=== PATIENT | female | born 1950 | race Caucasian/White ===

== ENCOUNTER 2018-04-26 14:06 | Outpatient (CLI) | payer MEDICARE | END 2018-04-26 14:07 | disposition home or self-care (01) | LOC: BICMAMMO 14:06 | PROVIDERS: ATTEND Family Medicine | DX: Z12.31 Encounter for screening mammogram for malignant neoplasm of breast (principal); Z80.3 Family history of malignant neoplasm of breast | CPT/HCPCS: 77063; 77067 ==

== ENCOUNTER 2018-07-10 11:07 | Outpatient (CLI) | payer MEDICARE ==
[2018-07-10 12:28] LABS: #Basophils 0.1 thou/uL (0.0-0.2); #Eosinphils 0.3 thou/uL (0.0-0.7); #Lymphocytes 1.9 thou/uL (1.20-3.40); #Monocytes 0.6 thou/uL (0.11-0.59); #Neutrophils 3.3 thou/uL (1.40-6.50); %Basophils 0.9 % (0.0-1.0); %Eosinophils 4.6 % (0.0-10.0); %Lymphocytes 31.4 % (21.0-51.0); %Monocytes 9.6 % (0.0-10.0); %Neutrophils 53.6 % (42.0-75.0); Hemoglobin 13.2 g/dL (12.0-16.0); Mean Corpuscular HGB CONC 32.8 g/dL (32.0-36.0); Mean Corpuscular Hemoglobin 29.6 pg (27.0-31.0); Mean Corpuscular Volume 90.4 fL (78.0-98.0); Mean Platelet Volume 7.1 fL (7.4-10.4); Platelet Count 360 thou/uL (130-400); RBC Distribution Width 11.6 % (11.5-14.5); Red Blood Cell (RBC) Count 4.45 mill/uL (4.20-5.40); White Blood Cell (WBC) Count 6.1 thou/uL (4.8-10.8)
[2018-07-10 12:39] LABS: Bilirubin Negative (Negative); Blood, Urine Negative (Negative); Clarity CLEAR (Clear); Glucose, Urine (Dipstick) Negative (Negative); Leukocyte Negative (Negative); Nitrite Negative (Negative); Protein, Urine (Dipstick) Negative (Neg-Trace); Specific Gravity, Urine 1.005 (1.002-1.036); Urobilinogen 0.2 mg/dL (0.2-1.0); pH, Urine 6.5 (5.0-9.0)
[2018-07-10 12:41] LABS: Bacteria/HPF None Seen HPF (None Seen); Hyaline Casts/LPF 0-3 HYALINE CAST LPF (0-3 Hyaline); Pathc Cast-AUWi Flag 0.29 (0-2.49); RBC/HPF None Seen HPF (0-3); Squamous Epithelial 0-3 HPF (0-3); WBC/HPF None Seen HPF (0-3)
[2018-07-10 12:42] LABS: INR-International Normal Ratio 0.9; Prothrombin Time 12.6 SEC (12.0-14.7)
[2018-07-10 12:48] LABS: Anion Gap 12 mmol/L (10-20); BUN (Urea Nitrogen) 16 mg/dL (9.8-20.1); Calc. Creatinine Clearance 0 mL/min (70-130); Calcium 9.9 mg/dL (7.8-10.44); Carbon Dioxide 24 mmol/L (23-31); Chloride 104 mmol/L (98-107); Estimated GFR-MDRD 64; Glucose 103 mg/dL (80-115); Potassium 4.3 mmol/L (3.5-5.1); Sodium 136 mmol/L (136-145)
--- NOTE | 2018-07-11 07:48 | EKG ---
Test Reason : Blood Pressure : / mmHG Vent. Rate : 070 BPM Atrial Rate : 070 BPM P-R Int : 174 ms QRS Dur : 084 ms QT Int : 380 ms P-R-T Axes : 065 053 039 degrees QTc Int : 410 ms Normal sinus rhythm Low voltage QRS Borderline ECG When compared with ECG of 16-MAY-2016 12:03, No significant change was found Confirmed by ASHLIE GUILLERMO ([id number]) on 07/11/2018 7:47:50 AM Referred By: IVON Confirmed By:ASHLIE GUILLERMO
== END 2018-07-10 11:08 | disposition home or self-care (01) ==
LOC: LABBT 11:07
PROVIDERS: ATTEND Orthopaedic Surgery
DX: Z01.818 Encounter for other preprocedural examination (principal); M17.11 Unilateral primary osteoarthritis, right knee
CPT/HCPCS: 80048; 81001; 85025; 85610; 86850; 86900; 86901; 87081; 93005; 93010

== ENCOUNTER 2018-07-15 05:29 | Inpatient (IN) | payer MEDICARE ==
[2018-07-04 09:31] VITALS: BMI 36.7
[2018-07-15] MEDS ORDERED: Fentanyl 100 MCG/2 ML VIAL ONE ×3 (05:41→09:10)
[2018-07-15] MEDS ORDERED: Propofol 1,000 MG/100 ML VIAL IV ONE (05:43)
[2018-07-15] MEDS ORDERED: Tranexamic Acid 1,000 MG/10 ML VIAL ONE ×2 (05:57→09:10)
[2018-07-15] MEDS ORDERED: Sodium Chloride 0.9% 100 ML ONE (05:57)
[2018-07-15] MEDS ORDERED: Vancomycin HCl 1.5 GM in Sodium Chloride 0.9% 250 ML 300 ML IVPB SCH ×2 (06:15→18:00)
[2018-07-15] MEDS ORDERED: Midazolam HCl 2 mg/2 ml Vial ONE (06:25)
[2018-07-15] MEDS ORDERED: Bupivacaine PF 0.5% 30 ML VIAL ONE (06:37)
[2018-07-15] MEDS ORDERED: diphenhydrAMINE 25 MG CAP PO PRN (07:30)
[2018-07-15] MEDS ORDERED: Fentanyl 100 MCG/2 ML VIAL SLOW IVP PRN (07:30)
[2018-07-15] MEDS ORDERED: Tranexamic Acid 1,000 MG in Sodium Chloride 0.9% 100 ML IVPB SCH (07:30)
[2018-07-15] MEDS ORDERED: Promethazine HCl 25 MG/ML VIAL IM PRN ×3 (07:30→09:19)
[2018-07-15] MEDS ORDERED: Acetaminophen 325 MG TAB PO PRN (07:30)
[2018-07-15] MEDS ORDERED: HYDROcodone/Acetaminophen 10/325 mg Tablet PO PRN ×3 (07:30→07:35)
[2018-07-15] MEDS ORDERED: traMADol HCl 50 MG TAB PO PRN ×3 (07:30→07:35)
[2018-07-15] MEDS ORDERED: Ondansetron PF 4 MG/2 ML Vial IVP PRN ×2 (07:30→07:35)
[2018-07-15] MEDS ORDERED: Fentanyl 100 MCG/2 ML VIAL IV PRN (07:35)
[2018-07-15] MEDS ORDERED: Zolpidem Tartrate 5 MG TAB PO PRN (07:35)
[2018-07-15] MEDS ORDERED: Ropivacaine HCl/PF 250 ML in Premix Bag 1 BAG NERVE BLCK SCH (07:35)
[2018-07-15] MEDS ORDERED: Propofol 500 MG/50 ML VIAL ONE (08:24)
[2018-07-15] MEDS ORDERED: PHENYLEPHRINE-NS 100 MCG/ML 10 ML SYRINGE ONE ×2 (08:44→11:38)
[2018-07-15] MEDS ORDERED: Promethazine HCl 25 MG/ML VIAL SLOW IVP PRN (09:19)
[2018-07-15] MEDS ORDERED: Ondansetron HCl/PF 4 MG/2 ML Vial IVP PRN (09:19)
--- NOTE | 2018-07-15 09:38 | OP ---
DATE OF PROCEDURE: 07/15/2018 PREOPERATIVE DIAGNOSIS: Right knee osteoarthrosis. POSTOPERATIVE DIAGNOSIS: Right knee osteoarthrosis. PROCEDURE PERFORMED: Right total knee arthroplasty using [place] pinless navigation. BABY DOCTOR: Terrence Panchal PA-C BLOOD LOSS: Minimal. COMPLICATIONS: None. ANESTHESIA: The patient did have a general anesthetic as well as a block preoperatively. IMPLANTS: Our implants to the right knee included a Swati Triathlon total knee system, the femur size 4 cruciate retaining femur. We used a size 4 primary tibial baseplate. We used a 4 x 9 mm CS X3 tibial bearing and an asymmetric 29 x 9 X3 patella. DISPOSITION: She did go to recovery room in stable condition. INDICATIONS: A 67-year-old female, who has had knee pain for years and at this time, finally got in to the point, where she wished to have her knee replaced. TOURNIQUET TIME: PROCEDURE IN DETAIL: After all appropriate consent forms were explained and signed, the patient was taken back to the operating room and at this time was given general anesthetic. Once the level of anesthesia was appropriate, a well-padded tourniquet was placed on the right leg, and the leg was then prepped and draped in standard surgical fashion. The limb was exsanguinated and tourniquet taken up to 300 mmHg. Midline incision was made with a 10 blade down through the skin and subcutaneous tissue. Bovie electrocautery was used to coagulate any brisk venous bleeding. A new blade was used to make a medial parapatellar arthrotomy. Small subperiosteal release was performed medially and excess fat pad was removed. The knee was flexed up to gain access to the femur. The femur was navigated and distal femoral resection was made. Epicondylar access was used to align our sizing jig and this was pinned in place. We sized our femur to be a 4 cruciate retaining. 4:1 cutting block was applied and pinned. Anterior and posterior chamfer cuts were then made. We navigated out our proximal tibia and made our proximal tibial resection. Spreaders were used to remove any posterior osteophytes off the back of the femur as well as remaining meniscal tissue. A long alignment caroline was then used to achieve correct rotation of our tibial baseplate and a size 4 primary tibial baseplate was chosen. This was pinned in place. We trialed the polyethylene and a 4 x 9 mm CS X3 polyethylene gave us full extension and good stability throughout range of motion. Two towel clips and a saw were used to cut our patella. Three lug nuts were drilled and asymmetric 29 x 9 X3 patella was trialed which sat nicely in the trochlear groove. We then drilled our femur and punched our tibia. All components were removed. The knee was thoroughly irrigated and dried. Cement was mixed into the cement gun on the back table. Components were then placed. The knee was held out in full extension until the cement had dried. All excess bone cement was removed. Multiple #2 Vicryl stitches as well as a Quill were used to close our extensor mechanism. 0 Quill followed by a running Monoderm was then used to close the skin. Surgicel glue was then used on the skin. Once this had dried, soft tissue dressing was applied to the limb, tourniquet was let down, and the toes pinked up nicely. The patient was then awakened and taken to the recovery room in stable condition. All counts were correct at the end of the case. The patient did receive preoperative IV antibiotics. The patient was injected with Exparel for postoperative pain relief. Job ID: [id number]
[2018-07-15] MEDS ORDERED: Ropivacaine 0.5% HCl/PF (150 MG/30 ML VIAL) ONE (11:23)
[2018-07-15] MEDS ORDERED: Ropivacaine 0.2% HCl/PF (40 MG/20 ML VIAL) ONE (11:23)
[2018-07-15] MEDS ORDERED: PROPOFOL 200 MG/20 ML VIAL ONE (11:38)
[2018-07-15] MEDS ORDERED: Dexamethasone 20 MG/5 ML VIAL ONE (11:38)
[2018-07-15] MEDS ORDERED: Ondansetron PF 4 MG/2 ML Vial ONE (11:38)
[2018-07-15] MEDS: Ketorolac Tromethamine 30 MG/ML VIAL IVP SCH ×3 (13:22→23:06)
[2018-07-15] MEDS: CEFAZOLIN 2 GM in Premix Bag 1 BAG IVPB SCH ×2 (13:22→23:07)
[2018-07-15] MEDS: Amlodipine 10 MG TAB PO SCH (13:24)
[2018-07-15] MEDS: Pantoprazole 40 MG GRANULES PACKET PO SCH (13:25)
[2018-07-15] MEDS: Aspirin 81 mg Enteric Coated Tablet PO SCH ×2 (13:33→20:27)
[2018-07-15] MEDS: Sodium Chloride 0.9% 1,000 ML IV SCH ×2 (13:34→19:32)
[2018-07-15] MEDS ORDERED: Ketorolac Tromethamine 30 MG/ML VIAL IVP SCH (14:00)
[2018-07-15] MEDS ORDERED: Eucerin (Mineral Oil/Petrolatum,White) 30 gm Jar TOP PRN (15:02)
[2018-07-15] MEDS ORDERED: Cepastat Lozenges 1 LOZ PO PRN (15:02)
[2018-07-15] MEDS ORDERED: Sodium Chloride 0.65% Nasal 44 ML BOT EA NARE PRN (15:02)
[2018-07-15] MEDS ORDERED: Loperamide HCl 2 MG CAP PO PRN (15:02)
[2018-07-15] MEDS ORDERED: Artificial Tear Sol 15 ML BOT EA EYE PRN (15:02)
[2018-07-15] MEDS ORDERED: hydrALAZINE 20 MG/ML VIAL SLOW IVP PRN (15:02)
[2018-07-15] MEDS ORDERED: Diabetic Tussin 200 MG/10 ML UDCUP PO PRN (15:02)
--- NOTE | 2018-07-15 15:12 | PDOC.PN ---
- Subjective Encounter Start Date: 07/15/18 Encounter Start Time: 14:15 -: old records requested/rev Patient seen and examined. No new complaints. pt is admitted for right TKR consulted for medical management post op she is doing well pain controlled - Objective Resuscitation Status - Order Detail: 07/15/18 15:02 Resuscitation Status Routine Resuscitation Status: FULL: Full Resuscitation MAR Reviewed: Yes Vital Signs & Weight: Weight Weight 214 lb Additional Labs: old [employer] record reviewed and labs are normal Phys Exam - Physical Examination Constitutional: NAD HEENT: PERRLA, moist MMs, sclera anicteric Neck: no JVD, supple Respiratory: no wheezing, no rales, no rhonchi Cardiovascular: RRR, no significant murmur, no rub Gastrointestinal: soft, non-tender, no distention, positive bowel sounds Musculoskeletal: no edema, pulses present right knee with dressing, nerve block in place, Neurological: non-focal, normal sensation, moves all 4 limbs Lymphatic: no nodes Psychiatric: normal affect, A&O x 3 Skin: no rash, normal turgor Dx/Plan (1) Status post total right knee replacement Code(s): Z96.651 - PRESENCE OF RIGHT ARTIFICIAL KNEE JOINT Status: Acute (2) Dyslipidemia Code(s): E78.5 - HYPERLIPIDEMIA, UNSPECIFIED Status: Chronic (3) GERD (gastroesophageal reflux disease) Code(s): K21.9 - GASTRO-ESOPHAGEAL REFLUX DISEASE WITHOUT ESOPHAGITIS Status: Chronic (4) Hypertension Code(s): I10 - ESSENTIAL (PRIMARY) HYPERTENSION Status: Chronic (5) Hypothyroidism Code(s): E03.9 - HYPOTHYROIDISM, UNSPECIFIED Status: Chronic (6) Obesity (BMI 30-39.9) Code(s): E66.9 - OBESITY, UNSPECIFIED Status: Chronic - Plan cont current plan of care, PT/OT * home medication reconciled * medication reviewed as below * symptomatic treatment * pain controlled * post operative care as per surgeon * code status full code * will follow * medically stable for now. * continue aspirin for DVT prophylaxis * nerve block as per ansthesia Review of Systems - Review of Systems ENT: negative: Ear Pain, Ear Discharge, Nose Pain, Nose Discharge, Nose Congestion, Mouth Pain, Mouth Swelling, Throat Pain, Throat Swelling, Other Respiratory: negative: Cough, Dry, Shortness of Breath, Hemoptysis, SOB with Excertion, Pleuritic Pain, Sputum, Wheezing Cardiovascular: negative: chest pain, palpitations, orthopnea, paroxysmal nocturnal dyspnea, edema, light headedness, other Gastrointestinal: negative: Nausea, Vomiting, Abdominal Pain, Diarrhea, Constipation, Melena, Hematochezia, Other Genitourinary: negative: Dysuria, Frequency, Incontinence, Hematuria, Retention , Other Musculoskeletal: negative: Neck Pain, Shoulder Pain, Arm Pain, Back Pain, Hand Pain, Leg Pain, Foot Pain, Other Skin: negative: Rash, Lesions, Tim, Bruising, Other - Medications/Allergies Allergies/Adverse Reactions: Allergies Allergy/AdvReac Type Severity Reaction Status Date / Time latex Allergy Rash Verified 07/04/18 09:32 Medications: Current Medications Acetaminophen (Tylenol) 650 mg PO Q4H PRN PRN Reason: Headache/Fever or Pain Hydrocodone Bitart/Acetaminophen ([place] 10/325) 1 tab PO Q4H PRN PRN Reason: Pain (1-3) Hydrocodone Bitart/Acetaminophen ([place] 10/325) 2 tab PO Q4H PRN PRN Reason: PAIN (4-6) Amlodipine Besylate (Norvasc) 10 mg PO DAILY [facility] Last Admin: 07/15/18 13:24 Dose: Not Given Artificial Tears (Tears Naturale) 2 drop EA EYE PRN PRN PRN Reason: Dry Eyes Aspirin (Ecotrin) 81 mg PO BID [facility] Last Admin: 07/15/18 13:33 Dose: 81 mg Atorvastatin Calcium (Lipitor) 40 mg PO [facility] Diphenhydramine HCl (Benadryl) 25 mg PO Q6H PRN PRN Reason: Itching Fentanyl (Sublimaze) 50 mcg IV Q1H PRN PRN Reason: BREAKTHROUGH PAIN Ferrous Gluconate (Fergon) 324 mg PO BID-[facility] Guaifenesin (Robitussin Sf) 200 mg PO Q4H PRN PRN Reason: Cough Hydralazine HCl (Apresoline) 10 mg SLOW IVP Q4H PRN PRN Reason: SBP > 180 and HR < 70 Cefazolin Sodium/Dextrose 2 gm (/ Device) 50 mls @ 100 mls/hr IVPB Q8HR [facility] Stop: 07/15/18 22:29 Last Admin: 07/15/18 13:22 Dose: 50 mls Sodium Chloride (Normal Saline 0.9%) 1,000 mls @ 100 mls/hr IV .Q10H [facility] Last Admin: 07/15/18 13:34 Dose: Not Given Vancomycin HCl 1.5 gm/ Sodium (Chloride) 300 mls @ 200 mls/hr IVPB 1800 [facility] Stop: 07/15/18 19:29 Ropivacaine 250 ml/ Device 250 mls @ 0 mls/hr NERVE BLCK INF [facility] Iron/Minerals/Multivitamins (Theragran M) 1 tab PO DAILY [facility] Ketorolac Tromethamine (Toradol) 15 mg IVP Q6HR [facility] Stop: 07/17/18 06:01 Last Admin: 07/15/18 13:22 Dose: 15 mg Levothyroxine Sodium (Synthroid) 50 mcg PO 0600 [facility] Liothyronine Sodium (Cytomel) 5 mcg PO 0600 [facility] Loperamide HCl (Imodium) 2 mg PO PRN PRN PRN Reason: Diarrhea/Loose Stools Losartan Potassium (Cozaar) 100 mg PO HS [facility] Metoprolol Succinate (Toprol Xl) 50 mg PO BID [facility] Last Admin: 07/15/18 13:24 Dose: Not Given Mineral Oil/White Petrolatum (Eucerin Cream) 0 gm TOP BIDPRN PRN PRN Reason: Dry Skin Ondansetron HCl (Zofran) 4 mg IVP Q6H PRN PRN Reason: Nausea/Vomiting Pantoprazole Sodium (Protonix) 40 mg PO DAILY [facility] Last Admin: 07/15/18 13:25 Dose: Not Given Melatonin 1 Mg 0 each PO HS [facility] Promethazine HCl (Phenergan) 12.5 mg IM Q4H PRN PRN Reason: Nausea/Vomiting Senna/Docusate Sodium (Senokot S) 2 tab PO BID [facility] Sodium Chloride (Flush - Normal Saline) 10 ml IVF PRN PRN PRN Reason: Saline Flush Sodium Chloride ([place] Nasal [place] 0.65%) 0 ml EA NARE QIDPRN PRN PRN Reason: Nasal Congestion Throat Lozenges (Cepastat Lozenges) 1 nick PO Q2H PRN PRN Reason: Sore Throat Tramadol HCl (Ultram) 50 mg PO Q6H PRN PRN Reason: Mild Pain (1-3) Last Admin: 07/15/18 13:33 Dose: 50 mg Tramadol HCl (Ultram) 100 mg PO Q6H PRN PRN Reason: Moderate Pain 4-6 Zolpidem Tartrate (Ambien) 5 mg PO HSPRN PRN PRN Reason: Insomnia
[2018-07-15] MEDS: Atorvastatin Calcium 40 MG TAB PO SCH (20:27)
[2018-07-15] MEDS: Losartan 25 MG TAB PO SCH (20:28)
[2018-07-15] MEDS ORDERED: Melatonin 3 MG TAB PO SCH (21:00)
[2018-07-15] MEDS ORDERED: Prevnar 13-Val Conj/PF 0.5 ML SYRINGE IM ONE (21:00)
[2018-07-15] MEDS: Zolpidem Tartrate 5 MG TAB PO PRN (23:05)
[2018-07-16] MEDS: Ketorolac Tromethamine 30 MG/ML VIAL IVP SCH ×3 (05:32→18:36)
[2018-07-16] MEDS: HYDROcodone/Acetaminophen 10/325 mg Tablet PO PRN ×3 (05:34→16:33)
[2018-07-16] MEDS: Levothyroxine Sodium 50 MCG TAB PO SCH (05:34)
[2018-07-16] MEDS: Liothyronine Sodium 5 MCG TAB PO SCH (05:34)
[2018-07-16] MEDS: Sodium Chloride 0.9% 1,000 ML IV SCH ×2 (05:35→19:31)
[2018-07-16 06:03] LABS: Hemoglobin 11.4 g/dL (12.0-16.0); Mean Corpuscular HGB CONC 33.7 g/dL (32.0-36.0); Mean Corpuscular Hemoglobin 30.9 pg (27.0-31.0); Mean Corpuscular Volume 91.8 fL (78.0-98.0); Mean Platelet Volume 7.2 fL (7.4-10.4); Platelet Count 322 thou/uL (130-400); RBC Distribution Width 11.5 % (11.5-14.5); Red Blood Cell (RBC) Count 3.68 mill/uL (4.20-5.40); White Blood Cell (WBC) Count 12.4 thou/uL (4.8-10.8)
[2018-07-16] MEDS: Amlodipine 10 MG TAB PO SCH (08:14)
[2018-07-16] MEDS: Senokot S 8.6-50 MG TAB PO SCH ×2 (08:15→20:58)
[2018-07-16] MEDS: Aspirin 81 mg Enteric Coated Tablet PO SCH ×2 (08:15→20:58)
[2018-07-16] MEDS: Pantoprazole 40 MG GRANULES PACKET PO SCH (08:15)
[2018-07-16] MEDS: Multivitamin W/ Minerals 1 TAB PO SCH (08:17)
[2018-07-16] MEDS: Ferrous Gluconate 324 MG TAB PO SCH ×2 (08:18→19:31)
--- NOTE | 2018-07-16 11:54 | PDOC.PN ---
- Subjective Encounter Start Date: 07/16/18 Encounter Start Time: 08:00 Patient seen and examined. No new complaints. No overnight events - Objective Resuscitation Status - Order Detail: 07/15/18 15:02 Resuscitation Status Routine Resuscitation Status: FULL: Full Resuscitation MAR Reviewed: Yes Vital Signs & Weight: Vital Signs (12 hours) Temp Pulse Resp BP Pulse Ox 07/16/18 08:26 98.3 F 76 14 109/68 95 07/16/18 05:00 98.3 F 75 18 121/72 95 Weight Admit Weight 214 lb Weight 214 lb I&O: 07/15/18 07/16/18 07/17/18 06:59 06:59 06:59 Intake Total 3300 Output Total 3200 Balance 100 Result Diagrams: 07/16/18 04:56 Phys Exam - Physical Examination Constitutional: NAD HEENT: PERRLA, moist MMs, sclera anicteric, oral pharynx no lesions Neck: no JVD, supple Respiratory: no wheezing, no rales, no rhonchi Cardiovascular: RRR, no significant murmur, no rub Gastrointestinal: soft, non-tender, no distention, positive bowel sounds Musculoskeletal: no edema, pulses present right knee with dressing, nerve block in place Neurological: non-focal, normal sensation, moves all 4 limbs Lymphatic: no nodes Psychiatric: normal affect, A&O x 3 Skin: no rash, normal turgor Dx/Plan (1) Status post total right knee replacement Code(s): Z96.651 - PRESENCE OF RIGHT ARTIFICIAL KNEE JOINT Status: Acute (2) Dyslipidemia Code(s): E78.5 - HYPERLIPIDEMIA, UNSPECIFIED Status: Chronic (3) GERD (gastroesophageal reflux disease) Code(s): K21.9 - GASTRO-ESOPHAGEAL REFLUX DISEASE WITHOUT ESOPHAGITIS Status: Chronic (4) Hypertension Code(s): I10 - ESSENTIAL (PRIMARY) HYPERTENSION Status: Chronic (5) Hypothyroidism Code(s): E03.9 - HYPOTHYROIDISM, UNSPECIFIED Status: Chronic (6) Obesity (BMI 30-39.9) Code(s): E66.9 - OBESITY, UNSPECIFIED Status: Chronic (7) Anemia, normocytic normochromic Code(s): D64.9 - ANEMIA, UNSPECIFIED Status: Acute - Plan cont current plan of care, plan discussed w/ family, PT/OT * medication reviewed as below * symptomatic treatment * pain controlled * nerve block as per anesthesia * PT/OT as per [facility] protocol * continue aspirin for DVT prophylaxis * post operative care as per surgeon * discharge per primary team * medically stable for now.. Review of Systems - Review of Systems ENT: negative: Ear Pain, Ear Discharge, Nose Pain, Nose Discharge, Nose Congestion, Mouth Pain, Mouth Swelling, Throat Pain, Throat Swelling, Other Respiratory: negative: Cough, Dry, Shortness of Breath, Hemoptysis, SOB with Excertion, Pleuritic Pain, Sputum, Wheezing Cardiovascular: negative: chest pain, palpitations, orthopnea, paroxysmal nocturnal dyspnea, edema, light headedness, other Gastrointestinal: negative: Nausea, Vomiting, Abdominal Pain, Diarrhea, Constipation, Melena, Hematochezia, Other Genitourinary: negative: Dysuria, Frequency, Incontinence, Hematuria, Retention , Other Musculoskeletal: negative: Neck Pain, Shoulder Pain, Arm Pain, Back Pain, Hand Pain, Leg Pain, Foot Pain, Other - Medications/Allergies Allergies/Adverse Reactions: Allergies Allergy/AdvReac Type Severity Reaction Status Date / Time latex Allergy Rash Verified 07/04/18 09:32 Medications: Current Medications Acetaminophen (Tylenol) 650 mg PO Q4H PRN PRN Reason: Headache/Fever or Pain Hydrocodone Bitart/Acetaminophen ([place] 10/325) 1 tab PO Q4H PRN PRN Reason: Pain (1-3) Hydrocodone Bitart/Acetaminophen ([place] 10/325) 2 tab PO Q4H PRN PRN Reason: PAIN (4-6) Last Admin: 07/16/18 10:01 Dose: 2 tab Amlodipine Besylate (Norvasc) 10 mg PO DAILY [facility] Last Admin: 07/16/18 08:14 Dose: 10 mg Artificial Tears (Tears Renewed 15ml Bottle) 2 drop EA EYE PRN PRN PRN Reason: Dry Eyes Aspirin (Ecotrin) 81 mg PO BID [facility] Last Admin: 07/16/18 08:15 Dose: 81 mg Atorvastatin Calcium (Lipitor) 40 mg PO HS [facility] Last Admin: 07/15/18 20:27 Dose: 40 mg Diphenhydramine HCl (Benadryl) 25 mg PO Q6H PRN PRN Reason: Itching Fentanyl (Sublimaze) 50 mcg IV Q1H PRN PRN Reason: BREAKTHROUGH PAIN Ferrous Gluconate (Fergon) 324 mg PO BID-[facility] Last Admin: 07/16/18 08:18 Dose: Not Given Guaifenesin (Robitussin Sf) 200 mg PO Q4H PRN PRN Reason: Cough Hydralazine HCl (Apresoline) 10 mg SLOW IVP Q4H PRN PRN Reason: SBP > 180 and HR < 70 Sodium Chloride (Normal Saline 0.9%) 1,000 mls @ 100 mls/hr IV .Q10H [facility] Last Admin: 07/16/18 05:35 Dose: Not Given Ropivacaine 250 ml/ Device 250 mls @ 0 mls/hr NERVE BLCK INF [facility] Last Admin: 07/16/18 10:00 Dose: 250 mls Iron/Minerals/Multivitamins (Theragran M) 1 tab PO DAILY [facility] Last Admin: 07/16/18 08:17 Dose: Not Given Ketorolac Tromethamine (Toradol) 15 mg IVP Q6HR [facility] Stop: 07/17/18 06:01 Last Admin: 07/16/18 05:32 Dose: 15 mg Levothyroxine Sodium (Synthroid) 50 mcg PO 0600 [facility] Last Admin: 07/16/18 05:34 Dose: 50 mcg Liothyronine Sodium (Cytomel) 5 mcg PO 0600 [facility] Last Admin: 07/16/18 05:34 Dose: 5 mcg Loperamide HCl (Imodium) 2 mg PO PRN PRN PRN Reason: Diarrhea/Loose Stools Losartan Potassium (Cozaar) 100 mg PO HS [facility] Last Admin: 07/15/18 20:28 Dose: Not Given Metoprolol Succinate (Toprol Xl) 50 mg PO BID [facility] Last Admin: 07/16/18 08:14 Dose: 50 mg Mineral Oil/White Petrolatum (Eucerin Cream) 0 gm TOP BIDPRN PRN PRN Reason: Dry Skin Ondansetron HCl (Zofran) 4 mg IVP Q6H PRN PRN Reason: Nausea/Vomiting Pantoprazole Sodium (Protonix) 40 mg PO DAILY [facility] Last Admin: 07/16/18 08:15 Dose: 40 mg Promethazine HCl (Phenergan) 12.5 mg IM Q4H PRN PRN Reason: Nausea/Vomiting Senna/Docusate Sodium (Senokot S) 2 tab PO BID [facility] Last Admin: 07/16/18 08:15 Dose: 2 tab Sodium Chloride (Flush - Normal Saline) 10 ml IVF PRN PRN PRN Reason: Saline Flush Sodium Chloride ([place] Nasal [place] 0.65%) 0 ml EA NARE QIDPRN PRN PRN Reason: Nasal Congestion Throat Lozenges (Cepastat Lozenges) 1 nick PO Q2H PRN PRN Reason: Sore Throat Tramadol HCl (Ultram) 50 mg PO Q6H PRN PRN Reason: Mild Pain (1-3) Last Admin: 07/15/18 13:33 Dose: 50 mg Tramadol HCl (Ultram) 100 mg PO Q6H PRN PRN Reason: Moderate Pain 4-6 Zolpidem Tartrate (Ambien) 5 mg PO HSPRN PRN PRN Reason: Insomnia Last Admin: 07/15/18 23:05 Dose: 5 mg
[2018-07-16] MEDS: Atorvastatin Calcium 40 MG TAB PO SCH (20:58)
[2018-07-16] MEDS: Losartan 25 MG TAB PO SCH (20:58)
[2018-07-16] MEDS ORDERED: Prevnar 13-Val Conj/PF 0.5 ML SYRINGE IM ONE (21:00)
[2018-07-17] MEDS: Zolpidem Tartrate 5 MG TAB PO PRN (00:01)
[2018-07-17] MEDS: Sodium Chloride 0.9% 1,000 ML IV SCH ×2 (00:01→10:41)
[2018-07-17 05:00] LABS: Hemoglobin 10.3 g/dL (12.0-16.0); Mean Corpuscular HGB CONC 32.9 g/dL (32.0-36.0); Mean Corpuscular Hemoglobin 30.7 pg (27.0-31.0); Mean Corpuscular Volume 93.2 fL (78.0-98.0); Mean Platelet Volume 7.2 fL (7.4-10.4); Platelet Count 298 thou/uL (130-400); RBC Distribution Width 11.9 % (11.5-14.5); Red Blood Cell (RBC) Count 3.36 mill/uL (4.20-5.40); White Blood Cell (WBC) Count 9.2 thou/uL (4.8-10.8)
[2018-07-17] MEDS: Ketorolac Tromethamine 30 MG/ML VIAL IVP SCH ×2 (05:33)
[2018-07-17] MEDS: Liothyronine Sodium 5 MCG TAB PO SCH (05:34)
[2018-07-17] MEDS: Levothyroxine Sodium 50 MCG TAB PO SCH (05:34)
[2018-07-17] MEDS: HYDROcodone/Acetaminophen 10/325 mg Tablet PO PRN ×2 (08:25→12:56)
[2018-07-17] MEDS: Senokot S 8.6-50 MG TAB PO SCH (08:29)
[2018-07-17] MEDS: Amlodipine 10 MG TAB PO SCH (08:29)
[2018-07-17] MEDS: Aspirin 81 mg Enteric Coated Tablet PO SCH (08:29)
[2018-07-17] MEDS: Multivitamin W/ Minerals 1 TAB PO SCH (08:30)
[2018-07-17] MEDS: Ferrous Gluconate 324 MG TAB PO SCH (08:30)
[2018-07-17] MEDS: Pantoprazole 40 MG GRANULES PACKET PO SCH (09:18)
[2018-07-17 12:17] VITALS: BP 125/74; TEMP 98.4
--- NOTE | 2018-07-18 12:36 | DIS ---
DATE OF ADMISSION: 07/15/2018 DATE OF DISCHARGE: 07/17/2018 ADMISSION DIAGNOSIS: End-stage tricompartmental osteoarthritis, right knee. DISCHARGE DIAGNOSIS: End-stage tricompartmental osteoarthritis, right knee. OPERATIVE PROCEDURE: Right total knee arthroplasty. CONSULTANTS: [facility] for acute postop pain management and [facility] management. DISCHARGE DISPOSITION: To home. BRIEF CLINICAL HISTORY: The patient was admitted to [facility] and underwent the above elective procedure on the date of admission without intra-, concha-, or postoperative complication. The hospital course was unremarkable. At the time of discharge, the patient is afebrile, ambulatory without assistance utilizing a rolling walker in a full weightbearing fashion, tolerating a regular diet, and voiding without difficulty. The patient's incision is clean and closed without any erythema. DISCHARGE MEDICATIONS: Please see medication reconciliation form. We will be happy to see the patient on an as-needed basis between now and the patient's next scheduled appointment. CONDITION ON DISCHARGE: Stable. PROGNOSIS: Good. Job ID: [id number]
== END 2018-07-17 13:10 | disposition home or self-care (01) | DRG 470 ==
LOC: SDC 05:29 → SJJU 07:30
PROVIDERS: ADMIT Orthopaedic Surgery; ATTEND Orthopaedic Surgery
PROC: 0SRC0J9 Replacement of Right Knee Joint with Synthetic Substitute, Cemented, Open Approach (ICD-10-PCS; principal; 2018-07-15)
DX: M17.11 Unilateral primary osteoarthritis, right knee (principal)
CPT/HCPCS: 36415; 85027; 90471; 90670; C1713; C1776; G0009; J1100; J1885; J2250; J2405; J2704; J2795; J3010; J3370; J7050; S0020

== ENCOUNTER 2018-09-23 05:15 | Outpatient (CLI) | payer MEDICARE ==
[2018-09-23 14:35] LABS: #Basophils 0.1 thou/uL (0.0-0.2); #Eosinphils 0.2 thou/uL (0.0-0.7); #Neutrophils 8.4 thou/uL (1.40-6.50); %Basophils 0.5 % (0.0-1.0); %Eosinophils 1.8 % (0.0-10.0); %Lymphocytes 16.8 % (21.0-51.0); %Monocytes 8.7 % (0.0-10.0); %Neutrophils 72.1 % (42.0-75.0); Hemoglobin 12.3 g/dL (12.0-16.0); Mean Corpuscular Hemoglobin 29.5 pg (27.0-31.0); Mean Corpuscular Volume 89.5 fL (78.0-98.0); Mean Platelet Volume 6.7 fL (7.4-10.4); Platelet Count 421 thou/uL (130-400); RBC Distribution Width 11.7 % (11.5-14.5); Red Blood Cell (RBC) Count 4.16 mill/uL (4.20-5.40); White Blood Cell (WBC) Count 11.7 thou/uL (4.8-10.8)
[2018-09-23 15:02] LABS: Anion Gap 13 mmol/L (10-20); BUN (Urea Nitrogen) 15 mg/dL (9.8-20.1); Calc. Creatinine Clearance 0 mL/min (70-130); Calcium 10.2 mg/dL (7.8-10.44); Carbon Dioxide 26 mmol/L (23-31); Chloride 102 mmol/L (98-107); Estimated GFR-MDRD 72; Glucose 102 mg/dL (80-115); Potassium 4.1 mmol/L (3.5-5.1); Sodium 137 mmol/L (136-145)
== END 2018-09-23 05:16 | disposition home or self-care (01) ==
LOC: LABBT 05:15
PROVIDERS: ATTEND Orthopaedic Surgery
DX: Z01.818 Encounter for other preprocedural examination (principal); M25.661 Stiffness of right knee, not elsewhere classified
CPT/HCPCS: 80048; 85025; 93005; 93010

== ENCOUNTER 2018-09-25 05:57 | Observation (INO) | payer MEDICARE ==
[2018-09-23 13:22] VITALS: BMI 36.7
[2018-09-25] MEDS ORDERED: Fentanyl 100 MCG/2 ML VIAL ONE ×2 (06:35→06:57)
[2018-09-25] MEDS ORDERED: Midazolam HCl 2 mg/2 ml Vial ONE ×2 (06:35→06:57)
[2018-09-25] MEDS ORDERED: Propofol 500 MG/50 ML VIAL ONE (07:36)
[2018-09-25] MEDS ORDERED: SUGAMMADEX SODIUM 200 MG/2 ML VIAL ONE (07:42)
[2018-09-25] MEDS ORDERED: SUGAMMADEX SODIUM 500 MG/5 ML VIAL ONE (07:42)
[2018-09-25] MEDS ORDERED: diphenhydrAMINE 50 MG/ML VIAL IM PRN (07:45)
[2018-09-25] MEDS ORDERED: Hydrocerin (Eucerin) Cream 120 gm Jar TOP PRN (07:45)
[2018-09-25] MEDS ORDERED: Ondansetron PF 4 MG/2 ML Vial IVP PRN (07:45)
[2018-09-25] MEDS ORDERED: diphenhydrAMINE 25 MG CAP PO PRN (07:45)
[2018-09-25] MEDS ORDERED: Zolpidem Tartrate 5 MG TAB PO PRN (07:45)
[2018-09-25] MEDS ORDERED: traMADol HCl 50 MG TAB PO PRN ×2 (07:45)
[2018-09-25] MEDS ORDERED: Naloxone HCl 0.4 mg/ml Vial IV PRN (07:45)
[2018-09-25] MEDS ORDERED: HYDROcodone/Acetaminophen 5/325 mg Tablet PO PRN ×2 (07:45)
[2018-09-25] MEDS ORDERED: Promethazine HCl 25 MG SUPP PR PRN (07:45)
[2018-09-25] MEDS ORDERED: Promethazine HCl 25 MG/ML VIAL IM PRN (07:45)
[2018-09-25] MEDS ORDERED: diphenhydrAMINE 50 MG/ML VIAL IVP PRN (07:45)
[2018-09-25] MEDS ORDERED: Bupivacaine 0.25% 10 ML VIAL EPIDURAL PRN (07:45)
[2018-09-25] MEDS ORDERED: Naloxone HCl 0.4 mg/ml Vial IVP PRN (07:45)
[2018-09-25] MEDS ORDERED: Fentanyl 5 mcg/Bup 0.075% Cadd 100 ML EPIDURAL SCH (07:45)
[2018-09-25] MEDS ORDERED: Bupivacaine/Epinephrine 0.25% 30 ML VIAL ONE (08:02)
[2018-09-25] MEDS ORDERED: ePHEDrine/0.9% NaCl/PF SYRINGE 50 mg/10 ml SLOW IVP PRN (09:46)
[2018-09-25] MEDS: Sodium Chloride 0.9% 1,000 ML IV SCH (11:28)
[2018-09-25] MEDS ORDERED: Ketorolac Tromethamine 30 MG/ML VIAL IVP SCH (12:00)
[2018-09-25] MEDS ORDERED: CeleCOXIB 100 MG CAP PO SCH (12:45)
--- NOTE | 2018-09-25 14:54 | OP ---
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 PROCEDURE PERFORMED: Right closed knee manipulation. APPLICATION DESIGNER: None. ESTIMATED BLOOD LOSS: None. COMPLICATIONS: None. ANESTHESIA: The patient had general anesthetic as well as an epidural. DISPOSITION: She went to recovery room in stable condition. INDICATIONS: This 68-year-old female had her knee replaced less than 3 months ago and at this time is presenting for manipulation secondary to poor range of motion. DESCRIPTION OF PROCEDURE: After verbal consent forms were explained and signed, the patient was taken to the operating room and at this time was given a general anesthetic. Preoperatively, she was given an epidural. At this time, a Herrera was placed and once this was done, we started to slowly manipulate the knee. We started of 0 to 80 or 82 degrees and after 20 minutes was closed, very slow manipulation, we were able to repeatedly get the knee 0 to 115. At this time, the calf was touching her thigh. At this time, the patient was then awakened and she was taken to recovery room in stable condition. The patient was given preop IV antibiotics secondary to placement of a Herrera and in recovery room, she will be started on CPM. Job ID: [id number]
[2018-09-25] MEDS ORDERED: PROPOFOL 200 MG/20 ML VIAL ONE (16:17)
[2018-09-25] MEDS ORDERED: ePHEDrine 50 MG/ML VIAL ONE (16:17)
[2018-09-25] MEDS ORDERED: PHENYLEPHRINE-NS 100 MCG/ML 10 ML SYRINGE ONE (16:17)
[2018-09-25] MEDS ORDERED: Lidocaine 1% PF 5 ML VIAL ONE (16:17)
[2018-09-25] MEDS ORDERED: Glycopyrrolate 0.2 MG/ML 5 ML SYRINGE ONE (16:17)
[2018-09-25] MEDS ORDERED: Ondansetron PF 4 MG/2 ML Vial ONE (16:17)
[2018-09-25] MEDS ORDERED: Rocuronium Bromide 10 MG/ML (10ML VIAL) ONE (16:17)
[2018-09-25] MEDS: CeleCOXIB 100 MG CAP PO SCH (20:20)
[2018-09-26] MEDS: Sodium Chloride 0.9% 1,000 ML IV SCH ×2 (02:29→08:42)
[2018-09-26] MEDS: CeleCOXIB 100 MG CAP PO SCH (08:09)
[2018-09-26 14:00] VITALS: BP 115/68; TEMP 98.7
== END 2018-09-26 13:55 | disposition home or self-care (01) ==
LOC: SDC 05:57 → SURG B 10:12
PROVIDERS: ADMIT Orthopaedic Surgery; ATTEND Orthopaedic Surgery
PROC: 0SNCXZZ Release Right Knee Joint, External Approach (ICD-10-PCS; principal; 2018-09-25)
DX: M24.661 Ankylosis, right knee (principal); I10 Essential (primary) hypertension; K21.9 Gastro-esophageal reflux disease without esophagitis; E03.9 Hypothyroidism, unspecified; Z79.82 Long term (current) use of aspirin; Z79.899 Other long term (current) drug therapy; Z91.040 Latex allergy status; Z96.651 Presence of right artificial knee joint; Z98.890 Other specified postprocedural states
CPT/HCPCS: 27570; 96374; 97116; 97139 ×5; G0378; J0690; J1885; J2001; J2250; J2405; J2704; J3010; J3490

== ENCOUNTER 2019-04-19 11:51 | Observation (INO) | payer MEDICARE ==
[2019-04-19] MEDS ORDERED: Aspirin Chewable 81 MG TAB ONE (12:15)
[2019-04-19 12:37] LABS: #Basophils 0.1 thou/uL (0.0-0.2); #Eosinphils 0.2 thou/uL (0.0-0.7); #Lymphocytes 1.5 thou/uL (1.20-3.40); #Monocytes 0.6 thou/uL (0.11-0.59); %Basophils 1.4 % (0.0-1.0); %Eosinophils 3.7 % (0.0-10.0); %Lymphocytes 22.8 % (21.0-51.0); %Monocytes 9.7 % (0.0-10.0); %Neutrophils 62.4 % (42.0-75.0); Hemoglobin 13.2 g/dL (12.0-16.0); Mean Corpuscular HGB CONC 34.3 g/dL (32.0-36.0); Mean Corpuscular Hemoglobin 30.2 pg (27.0-31.0); Mean Corpuscular Volume 88.2 fL (78.0-98.0); Mean Platelet Volume 6.8 fL (7.4-10.4); Platelet Count 334 thou/uL (130-400); RBC Distribution Width 11.8 % (11.5-14.5); Red Blood Cell (RBC) Count 4.38 mill/uL (4.20-5.40); White Blood Cell (WBC) Count 6.4 thou/uL (4.8-10.8)
--- NOTE | 2019-04-19 12:55 | RAD ---
PORTABLE CHEST: HISTORY: Chest pain. FINDINGS: Lungs are clear. Heart and mediastinum appear normal. Vasculature normal. IMPRESSION: No acute finding. POS: OFF
[2019-04-19 12:56] LABS: ALT (SGPT) 21 U/L (8-55); AST (SGOT) 17 U/L (5-34); Albumin 4.5 g/dL (3.4-4.8); Alkaline Phosphatase 138 U/L (40-110); Anion Gap 11 mmol/L (10-20); BUN (Urea Nitrogen) 15 mg/dL (9.8-20.1); Bilirubin, Total 0.5 mg/dL (0.2-1.2); CK (CPK) 44 U/L (29-168); Calc. Creatinine Clearance 0 mL/min (70-130); Calcium 9.6 mg/dL (7.8-10.44); Carbon Dioxide 26 mmol/L (23-31); Chloride 103 mmol/L (98-107); Estimated GFR-MDRD 60; Globulin 2.8 g/dL (2.4-3.5); Glucose 125 mg/dL (80-115); Lipase 26 U/L (8-78); Protein, Total 7.3 g/dL (6.0-8.3); Sodium 136 mmol/L (136-145)
[2019-04-19] MEDS ORDERED: Iopamidol 370 76% 50 ML VIAL FS ONE (13:15)
--- NOTE | 2019-04-19 14:41 | CT ---
CTA OF THE CHEST UTILIZING IV CONTRAST AND PE PROTOCOL AND 3D REFORMATTED IMAGING: INDICATION: History of chest pain and elevated D-dimer. COMPARISON: None. FINDINGS: No central or segmental pulmonary embolus is demonstrated. No enlarged lymph nodes are evident. Aor ta and great vessel origins are normal-appearing. No confluent airspace opacity or pleural effusion is noted. Small sub-4 mm pulmonary nodule is in th e left upper lobe on image 25 of series 3. Visualized upper abdomen reveals no acute abnormality. There is scattered degenerative and osteoarthritic change. IMPRESSION: 1. No central or segmental pulmonary embolus. 2. No definite acute cardiopulmonary abnormality. POS: CET
[2019-04-19] MEDS ORDERED: Nitroglycerin 0.4 MG TAB (25 Tab Bottle) SL PRN (15:31)
--- NOTE | 2019-04-19 15:33 | PDOC.HHP ---
Hospitalist HPI - History of Present Illness Chest pain History of Present Illness: 68 yo female with HTN, DL, GERD, TIA history presented to ER due to chest pain. 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 Later, she was doing some chores at her house when she developed sudden onset 10/10 pain in the left side of the chest in the left armpit without any radiation that was a tightness sensation. No aggravating factors but it was relieved with nitropaste that was placed by EMS. She was noted to have SBP of 170s at that time. No N/V/D/C. Reports it was associated with sweating. She had some shortness of breath. No cough, wheezing, fever, chills, headache. She had some palpitations. She denies any lightheadedness. No abd. pain or urinary symptoms. No leg swelling. Patient had a CTA coronaries in May, 2018 which she showed me the report. It revealed minimal coronary artery disease putting her in the 10-25 percentile. Hospitalist ROS - Review of Systems All other systems reviewed; all pertinent +/- noted in HPI/Subj Hospitalist History - Past Medical History Source: patient Cardiac: reports: HTN, Hyperlipidemia [employer]: reports: TIA Gastrointestinal: reports: GERD Endocrine: reports: Hypothyroidism - Past Surgical History Past Surgical History: reports: Total Knee Replacement - Family History Family History: reports: cardiac disorder (father with CAD and rheumatic heart disease) - Social History Smoking Status: Never smoker Alcohol: reports: None Drugs: reports: none Living Situation: With Family Activity level: independent ambulation - Exam General Appearance: NAD, awake alert Eye: PERRL, anicteric sclera ENT: normocephalic atraumatic, no oropharyngeal lesions, moist mucosa Neck: supple, symmetric, no JVD, no thyromegaly, no lymphadenopathy, no carotid bruit Heart: RRR, no murmur, no gallops, no rubs, normal peripheral pulses Respiratory: CTAB, no wheezes, no rales, no ronchi, normal chest expansion, no tachypnea, normal percussion Respiratory - other findings: tenderness to palpation in the left infraaxillary region Gastrointestinal: soft, non-tender, non-distended, normal bowel sounds, no palpable masses, no hepatomegaly, no splenomegaly, no bruit Extremities: no cyanosis, no clubbing, no edema Skin: normal turgor, no lesions, no rashes Neurological: cranial nerve grossly intact, normal sensation to touch, no weakness, no focal deficits Musculoskeletal: normal tone, normal strength, no muscle wasting Psychiatric: normal affect, normal behavior, A&O x 3 Hospitalist Results - Labs Result Diagrams: 04/19/19 12:24 04/19/19 12:24 Lab results: WBC 6.4 thou/uL (4.8-10.8) 04/19/19 12:24 Hgb 13.2 g/dL (12.0-16.0) 04/19/19 12:24 Hct 38.6 % (36.0-47.0) 04/19/19 12:24 MCV 88.2 fL (78.0-98.0) 04/19/19 12:24 Plt Count 334 thou/uL (130-400) 04/19/19 12:24 Neutrophils % 62.4 % (42.0-75.0) 04/19/19 12:24 Sodium 136 mmol/L (136-145) 04/19/19 12:24 Potassium 4.0 mmol/L (3.5-5.1) 04/19/19 12:24 Chloride 103 mmol/L (98-107) 04/19/19 12:24 Carbon Dioxide 26 mmol/L (23-31) 04/19/19 12:24 BUN 15 mg/dL (9.8-20.1) 04/19/19 12:24 Creatinine 0.94 mg/dL (0.6-1.1) 04/19/19 12:24 Glucose 125 mg/dL (80-115) H 04/19/19 12:24 Calcium 9.6 mg/dL (7.8-10.44) 04/19/19 12:24 Total Bilirubin 0.5 mg/dL (0.2-1.2) 04/19/19 12:24 AST 17 U/L (5-34) 04/19/19 12:24 ALT 21 U/L (8-55) 04/19/19 12:24 Alkaline Phosphatase 138 U/L (40-110) H 04/19/19 12:24 Creatine Kinase 44 U/L (29-168) 04/19/19 12:24 Troponin I Less than 0.010 ng/mL (< 0.028) 04/19/19 12:24 Serum Total Protein 7.3 g/dL (6.0-8.3) 04/19/19 12:24 Albumin 4.5 g/dL (3.4-4.8) 04/19/19 12:24 Lipase 26 U/L (8-78) 04/19/19 12:24 - EKG Interpretation EKG: Personally reviewed - Sinus rhythm; No ST-T changes concerning for ischemia - Radiology Interpretation Chest x-ray Status: image reviewed by me (No consolidation or CP angle blunting) CT scan - chest Status: report reviewed by me (No PE or abnormalities) Hospitalist H&P A/P - Problem (1) Chest pain Code(s): R07.9 - CHEST PAIN, UNSPECIFIED Status: Acute Qualifiers: Chest pain type: unspecified Qualified Code(s): R07.9 - Chest pain, unspecified Assessment and Plan: Differentials include Prinzmetal angina vs musckulosketal pain given her CTA coronaries was negative in May, 2018 Place under observation to telemetry Cycle cardiac enzymes Patient has a occupational therapy aide at [facility] If cardiac enzymes negative and once BP adequately controlled, will likely DC tomorrow AM with outpatient follow up with her occupational therapy aide No indication for inpatient stress testing now (2) History of TIA (transient ischemic attack) Code(s): Z86.73 - PRSNL HX OF TIA (TIA), AND CEREB INFRC W/O RESID DEFICITS Status: Chronic Assessment and Plan: Continue ASA, statin (3) Dyslipidemia Code(s): E78.5 - HYPERLIPIDEMIA, UNSPECIFIED Status: Chronic Assessment and Plan: Continue statin therapy (4) GERD (gastroesophageal reflux disease) Code(s): K21.9 - GASTRO-ESOPHAGEAL REFLUX DISEASE WITHOUT ESOPHAGITIS Status: Chronic Qualifiers: Esophagitis presence: esophagitis presence not specified Qualified Code(s) : K21.9 - Gastro-esophageal reflux disease without esophagitis Assessment and Plan: Continue home meds (5) Hypertension Code(s): I10 - ESSENTIAL (PRIMARY) HYPERTENSION Status: Chronic Qualifiers: Hypertension type: essential hypertension Qualified Code(s): I10 - Essential (primary) hypertension Assessment and Plan: BP elevated this morning Now improved Resume home meds (6) Hypothyroidism Code(s): E03.9 - HYPOTHYROIDISM, UNSPECIFIED Status: Chronic Qualifiers: Hypothyroidism type: acquired Qualified Code(s): E03.9 - Hypothyroidism, unspecified Assessment and Plan: Stable Continue home dose of synthroid (7) Obesity (BMI 30-39.9) Code(s): E66.9 - OBESITY, UNSPECIFIED Status: Chronic
[2019-04-19] MEDS ORDERED: Ondansetron PF 4 MG/2 ML Vial IVP PRN (16:20)
[2019-04-19] MEDS ORDERED: Acetaminophen 325 MG TAB PO PRN (16:20)
[2019-04-19 16:24] LABS: Troponin I 0.013 ng/mL (< 0.028)
[2019-04-19 16:35] VITALS: BMI 38.6
[2019-04-19 18:59] LABS: Troponin I Less than 0.010 ng/mL (< 0.028)
[2019-04-19] MEDS ORDERED: Gabapentin 300 MG CAP PO SCH (21:45)
[2019-04-19] MEDS ORDERED: Losartan 25 MG TAB PO SCH (21:45)
[2019-04-19] MEDS ORDERED: Atorvastatin Calcium 40 MG TAB PO SCH (21:45)
[2019-04-20 01:44] LABS: Troponin I Less than 0.010 ng/mL (< 0.028)
[2019-04-20 04:29] LABS: #Basophils 0.1 thou/uL (0.0-0.2); #Eosinphils 0.4 thou/uL (0.0-0.7); #Lymphocytes 2.3 thou/uL (1.20-3.40); #Monocytes 0.7 thou/uL (0.11-0.59); #Neutrophils 3.3 thou/uL (1.40-6.50); %Basophils 1.2 % (0.0-1.0); %Eosinophils 5.3 % (0.0-10.0); %Lymphocytes 33.9 % (21.0-51.0); %Monocytes 10.8 % (0.0-10.0); %Neutrophils 48.8 % (42.0-75.0); Mean Corpuscular HGB CONC 33.8 g/dL (32.0-36.0); Mean Corpuscular Hemoglobin 29.7 pg (27.0-31.0); Mean Platelet Volume 6.5 fL (7.4-10.4); Platelet Count 322 thou/uL (130-400); RBC Distribution Width 11.8 % (11.5-14.5); Red Blood Cell (RBC) Count 4.04 mill/uL (4.20-5.40); White Blood Cell (WBC) Count 6.7 thou/uL (4.8-10.8)
[2019-04-20 04:49] LABS: ALT (SGPT) 22 U/L (8-55); AST (SGOT) 16 U/L (5-34); Albumin 4.1 g/dL (3.4-4.8); Alkaline Phosphatase 119 U/L (40-110); Anion Gap 11 mmol/L (10-20); BUN (Urea Nitrogen) 14 mg/dL (9.8-20.1); Bilirubin, Total 0.6 mg/dL (0.2-1.2); Calc. Creatinine Clearance 111 mL/min (70-130); Calcium 9.5 mg/dL (7.8-10.44); Carbon Dioxide 26 mmol/L (23-31); Chloride 104 mmol/L (98-107); Estimated GFR-MDRD 72; Globulin 2.6 g/dL (2.4-3.5); Glucose 108 mg/dL (80-115); Potassium 4.3 mmol/L (3.5-5.1); Protein, Total 6.7 g/dL (6.0-8.3); Sodium 137 mmol/L (136-145)
[2019-04-20] MEDS ORDERED: Amlodipine 10 MG TAB PO SCH (09:00)
[2019-04-20] MEDS ORDERED: Aspirin 81 mg Enteric Coated Tablet PO SCH (09:00)
[2019-04-20] MEDS ORDERED: Pantoprazole 40 MG GRANULES PACKET PO SCH (09:00)
[2019-04-20] MEDS ORDERED: Levothyroxine Sodium 75 MCG TAB PO SCH (09:00)
[2019-04-20] MEDS ORDERED: Gabapentin 300 MG CAP PO SCH (09:00)
[2019-04-20] MEDS ORDERED: Liothyronine Sodium 5 MCG TAB PO SCH (09:00)
[2019-04-20 11:51] VITALS: BP 107/58; TEMP 98.3
--- NOTE | 2019-04-20 19:55 | DIS ---
DATE OF ADMISSION: 04/19/2019 DATE OF DISCHARGE: 04/20/2019 DISCHARGE DIAGNOSES: 1. Chest pain, musculoskeletal, noncardiac. 2. Gastroesophageal reflux disease. 3. Hypertension, stable. 4. Dyslipidemia. 5. Hypothyroidism, stable. CONSULTATIONS: None. PERTINENT LABORATORY AND X-RAY FINDINGS: Troponin I negative x4. Lipase 26. CBC within normal limits. Portable chest x-ray dated 04/19/2019, showed no acute cardiopulmonary process. CT angiogram of the chest dated 04/19/2019, showed no evidence for pulmonary embolus. HOSPITAL COURSE: The patient was observed on the telemetry unit after initially presenting with left-sided chest wall and axillary pain, undergoing serial cardiac enzymes which were negative x4. Telemetry monitoring showed sinus mechanism without evidence of acute arrhythmia or dysrhythmia and screening metabolic survey was essentially unremarkable. CT angiogram of the chest was performed after elevated D-dimer after initial presentation in the emergency room; however, this was negative for pulmonary embolus. The patient's presentation consistent with musculoskeletal origin chest pain with recommendations for general supportive management. I have examined the patient at the time of discharge and discussed followup instructions. The patient overall clinically stable and ready for discharge on 04/20/2019. DISCHARGE MEDICATIONS: 1. Norvasc 10 mg p.o. daily. 2. Lipitor 40 mg p.o. at bedtime. 3. Celebrex 200 mg p.o. daily. 4. Gabapentin 300 mg p.o. b.i.d. 5. Levothyroxine 75 mcg p.o. daily. 6. Liothyronine 5 mcg p.o. daily. 7. Losartan 100 mg p.o. at bedtime. 8. Toprol-XL 50 mg p.o. b.i.d. 9. Protonix 40 mg p.o. daily. 10. Enteric-coated aspirin 81 mg p.o. b.i.d. FOLLOWUP: The patient may follow up with her primary care provider, Dr. Luis Enrique Meadows with [facility] within 7 days of discharge. CONDITION ON DISCHARGE: Stable. ACTIVITY: [place]. DIET: Heart healthy. CODE STATUS: Full. DISPOSITION: Home on 04/20/2019. Job ID: [id number]
[2019-04-20] MEDS ORDERED: Atorvastatin Calcium 40 MG TAB PO SCH (21:00)
[2019-04-20] MEDS ORDERED: Losartan 25 MG TAB PO SCH (21:00)
== END 2019-04-20 12:39 | disposition home or self-care (01) ==
LOC: ERS 11:51 → 2SW 16:32
PROVIDERS: ADMIT Family Medicine; ATTEND Family Medicine
DX: R07.89 Other chest pain (principal); K21.9 Gastro-esophageal reflux disease without esophagitis; I10 Essential (primary) hypertension; E78.5 Hyperlipidemia, unspecified; E03.9 Hypothyroidism, unspecified; R79.1 Abnormal coagulation profile; E66.9 Obesity, unspecified; Z68.38 Body mass index [BMI] 38.0-38.9, adult; Z86.73 Personal history of transient ischemic attack (TIA), and cerebral infarction without residual deficits; Z79.82 Long term (current) use of aspirin; Z79.899 Other long term (current) drug therapy; Z91.040 Latex allergy status
CPT/HCPCS: 71045; 71275; 80053 ×2; 82550; 83690; 84484 ×3; 85025 ×2; 85379; 93005; 99285; G0378 ×2; 36415; Q9967

== ENCOUNTER 2019-05-01 10:57 | Outpatient (CLI) | payer MEDICARE ==
--- NOTE | 2019-05-01 12:41 | MMO ---
Bilateral MAMMO Bilat Screen [facility]. CLINICAL HISTORY: Patient is 68 years old and is seen for screening. The patient has no personal history of cancer. The patient has a history of left cyst aspiration in 1994. VIEWS: The views performed were: bilateral craniocaudal with tomosynthesis and bilateral mediolateral oblique with tomosynthesis. FILMS COMPARED: The present examination has been compared to prior imaging studies performed at [facility] on 01/22/2015, 03/02/2016, 03/26/2017 and 04/26/2018. This study has been interpreted with the assistance of computer-aided detection. MAMMOGRAM FINDINGS: The breasts are almost entirely fat. There are no suspicious masses, suspicious calcifications, or new areas of architectural distortion. IMPRESSION: THERE IS NO MAMMOGRAPHIC EVIDENCE OF MALIGNANCY. A ROUTINE FOLLOW-UP MAMMOGRAM IN 1 YEAR IS RECOMMENDED. THE RESULTS OF THIS EXAM WERE SENT TO THE PATIENT. ACR BI-RADS Category 1 - Negative MAMMOGRAPHY NOTE: 1. A negative mammogram report should not delay a biopsy if a dominant of clinically suspicious mass is present. 2. Approximately 10% to 15% of breast cancers are not detected by mammography. 3. Adenosis and dense breasts may obscure an underlying neoplasm. Reported by: RISHABH BARONE MD Electonically Signed: [id number]
== END 2019-05-01 10:58 | disposition home or self-care (01) ==
LOC: BICMAMMO 10:57
PROVIDERS: ATTEND Family Medicine
DX: Z12.31 Encounter for screening mammogram for malignant neoplasm of breast (principal)
CPT/HCPCS: 77063; 77067

== ENCOUNTER 2019-09-23 07:41 | Outpatient (CLI) | payer MEDICARE ==
--- NOTE | 2019-09-23 12:16 | NM ---
HEPATOBILIARY SCAN: Date: 09/23/2019 HISTORY: Right upper quadrant pain. RADIOPHARMACEUTICAL: 5.4 mCi technetium-99m mebrofenin injected intravenously. FINDINGS: There is good tracer extraction by the liver with prompt excretion into the biliary tract and small b owel loops, and normal filling of the gallbladder. The calculated gallbladder ejection fraction following an oral fatty meal measures 77%. IMPRESSION: Normal exam. POS: [facility]
== END 2019-09-23 07:42 | disposition home or self-care (01) ==
LOC: NM 07:41
PROVIDERS: ATTEND Internal Medicine Gastroenterology
DX: K21.9 Gastro-esophageal reflux disease without esophagitis (principal); R10.11 Right upper quadrant pain
CPT/HCPCS: 78227; 80053; 82150; 83690; A9537; 36415

== ENCOUNTER 2021-04-10 19:00 | Outpatient (CLI) | payer MEDICARE | END 2021-04-10 19:01 | disposition home or self-care (01) | LOC: SLEEPLAB 19:00 | PROVIDERS: ATTEND Family Medicine | DX: G47.33 Obstructive sleep apnea (adult) (pediatric) (principal); R06.83 Snoring; G47.00 Insomnia, unspecified; G47.10 Hypersomnia, unspecified; K21.9 Gastro-esophageal reflux disease without esophagitis; E11.9 Type 2 diabetes mellitus without complications; I10 Essential (primary) hypertension | CPT/HCPCS: 95811 ==

== ENCOUNTER 2021-11-25 17:37 | Observation (INO) | payer MEDICARE ==
[2021-11-25 18:06] LABS: #Basophils 0.1 thou/uL (0.0-0.2); #Eosinphils 0.3 thou/uL (0.0-0.7); #Lymphocytes 2.4 thou/uL (1.20-3.40); #Monocytes 0.8 thou/uL (0.11-0.59); %Basophils 0.9 % (0.0-1.0); %Eosinophils 2.9 % (0.0-10.0); %Lymphocytes 24.9 % (21.0-51.0); %Monocytes 8.6 % (0.0-10.0); %Neutrophils 62.7 % (42.0-75.0); Hemoglobin 13.7 g/dL (12.0-16.0); Mean Corpuscular HGB CONC 32.6 g/dL (32.0-36.0); Mean Corpuscular Volume 92.1 fL (78.0-98.0); Mean Platelet Volume 6.9 fL (7.4-10.4); Platelet Count 387 thou/uL (130-400); Red Blood Cell (RBC) Count 4.57 mill/uL (4.20-5.40); White Blood Cell (WBC) Count 9.5 thou/uL (4.8-10.8)
[2021-11-25 18:28] LABS: ALT (SGPT) 28 U/L (8-55); AST (SGOT) 22 U/L (5-34); Albumin 4.7 g/dL (3.4-4.8); Alkaline Phosphatase 143 U/L (40-110); Anion Gap 15 mmol/L (10-20); BUN (Urea Nitrogen) 13 mg/dL (9.8-20.1); Bilirubin, Total 0.6 mg/dL (0.2-1.2); Calc. Creatinine Clearance 0 mL/min (70-130); Calcium 10.2 mg/dL (7.8-10.44); Carbon Dioxide 24 mmol/L (23-31); Chloride 103 mmol/L (98-107); Estimated GFR 63; Globulin 3.3 g/dL (2.4-3.5); Glucose 122 mg/dL (80-115); Lipase 24 U/L (8-78); Potassium 4.3 mmol/L (3.5-5.1); Sodium 138 mmol/L (136-145)
[2021-11-25 21:27] VITALS: BMI 38.4
[2021-11-25] MEDS ORDERED: Acetaminophen 650 MG Suppository PR PRN (21:35)
[2021-11-25] MEDS ORDERED: Acetaminophen 325 MG TAB PO PRN (21:35)
[2021-11-25] MEDS ORDERED: Ondansetron PF 4 MG/2 ML Vial IVP PRN (21:35)
[2021-11-25] MEDS ORDERED: Nitroglycerin 0.4 MG TAB (25 Tab Bottle) SL PRN (21:35)
[2021-11-25] MEDS ORDERED: Ondansetron ODT 4 MG TAB PO PRN (21:35)
[2021-11-25 23:07] LABS: Troponin I Less than 0.010 ng/mL (< 0.028)
[2021-11-26 01:38] LABS: Troponin I Less than 0.010 ng/mL (< 0.028)
[2021-11-26 04:59] LABS: #Eosinphils 0.3 thou/uL (0.0-0.7); #Lymphocytes 2.5 thou/uL (1.20-3.40); #Monocytes 0.9 thou/uL (0.11-0.59); #Neutrophils 3.9 thou/uL (1.40-6.50); %Basophils 0.6 % (0.0-1.0); %Eosinophils 3.5 % (0.0-10.0); %Lymphocytes 32.6 % (21.0-51.0); %Monocytes 11.6 % (0.0-10.0); %Neutrophils 51.7 % (42.0-75.0); Hemoglobin 12.9 g/dL (12.0-16.0); Mean Corpuscular HGB CONC 33.1 g/dL (32.0-36.0); Mean Corpuscular Hemoglobin 30.7 pg (27.0-31.0); Mean Corpuscular Volume 92.6 fL (78.0-98.0); Platelet Count 321 thou/uL (130-400); RBC Distribution Width 11.9 % (11.5-14.5); White Blood Cell (WBC) Count 7.6 thou/uL (4.8-10.8)
[2021-11-26 05:17] LABS: Anion Gap 14 mmol/L (10-20); BUN (Urea Nitrogen) 11 mg/dL (9.8-20.1); Calc. Creatinine Clearance 105 mL/min (70-130); Calcium 9.7 mg/dL (7.8-10.44); Carbon Dioxide 24 mmol/L (23-31); Cardiac Risk 4.5 (Less than 4.5); Chloride 105 mmol/L (98-107); Cholesterol 187 mg/dl (< 200 Desired); Estimated GFR 79; Glucose 118 mg/dL (80-115); HDL Cholesterol 42 mg/dL (>60 Neg Risk); LDL Cholesterol, Calculated 118 mg/dL; Sodium 139 mmol/L (136-145); Triglycerides 136 mg/dL (Less than 150)
[2021-11-26] MEDS ORDERED: Aspirin Chewable 81 MG TAB PO SCH (09:00)
[2021-11-26] MEDS ORDERED: ADENOSINE 60 MG/20 ML VIAL ONE (09:51)
[2021-11-26] MEDS: Aspirin 81 mg Enteric Coated Tablet PO SCH (20:03)
[2021-11-26] MEDS ORDERED: Losartan 25 MG TAB PO SCH (21:00)
[2021-11-26] MEDS ORDERED: Atorvastatin Calcium 40 MG TAB PO SCH (21:00)
[2021-11-27] MEDS ORDERED: Levothyroxine Sodium 50 MCG TAB PO SCH (06:00)
[2021-11-27 08:04] VITALS: BP 132/59; TEMP 97.9
[2021-11-27] MEDS ORDERED: Amlodipine 10 MG TAB PO SCH (09:00)
[2021-11-27] MEDS ORDERED: Liothyronine Sodium 5 MCG TAB PO SCH (09:00)
[2021-11-27] MEDS: Aspirin 81 mg Enteric Coated Tablet PO SCH (09:27)
== END 2021-11-27 13:10 | disposition home or self-care (01) ==
LOC: ERS 17:37 → 2SW 20:11
PROVIDERS: ADMIT Family Medicine; ATTEND Family Medicine
DX: R07.89 Other chest pain (principal); I10 Essential (primary) hypertension; E78.5 Hyperlipidemia, unspecified; E03.9 Hypothyroidism, unspecified; K21.9 Gastro-esophageal reflux disease without esophagitis; E66.9 Obesity, unspecified; Z68.38 Body mass index [BMI] 38.0-38.9, adult; Z79.82 Long term (current) use of aspirin; Z79.890 Hormone replacement therapy; Z79.899 Other long term (current) drug therapy; Z91.040 Latex allergy status; Z20.822 Contact with and (suspected) exposure to COVID-19
CPT/HCPCS: 71045; 78452; 80048; 80053; 80061; 83690; 84484 ×3; 85025 ×2; 93005 ×2; 93017; 94760 ×3; 99285; A9500; U0003; U0005; 36415; 93010; G0378; J0153

== ENCOUNTER 2024-03-07 12:35 | Outpatient (CLI) | payer MEDICARE | END 2024-03-07 12:36 | disposition home or self-care (01) | LOC: SCSMRI 12:35 | PROVIDERS: ATTEND Orthopaedic Surgery | DX: M51.16 Intervertebral disc disorders with radiculopathy, lumbar region (principal); M48.061 Spinal stenosis, lumbar region without neurogenic claudication; M48.07 Spinal stenosis, lumbosacral region | CPT/HCPCS: 72148 ==